=== PATIENT | female | born 1995 | race African-American/Black ===

== ENCOUNTER 2018-08-16 16:31 | Inpatient (IN) | payer BC ==
[~2018-08-16] VITALS: Ht 162.6 cm; Wt 86.4 kg
[2018-08-16] MEDS ORDERED: BETAMETHASONE 6 MG/ML, 5ML IM ONE ×2 (17:19→17:30)
[2018-08-16 17:27] VITALS: BP 130/67
[2018-08-16] MEDS ORDERED: LACTATED RINGERS 1,000 ML IV PRN (17:29)
[2018-08-16] MEDS ORDERED: PLEASE ENTER HEIGHT AND WEIGHT MC SCH (17:30)
[2018-08-16] MEDS: AMPICILLIN 2 GM in SODIUM CHLORIDE 0.9% 100 ML IV SCH ×2 (17:51→23:05)
[2018-08-16 18:13] LABS: BASOPHILS # (AUTO) 0.02 x10^3/uL (0-0.1); BASOPHILS % (AUTO) 0 % (0-1); EOSINOPHILS # (AUTO) 0.06 x10^3/uL (0-0.4); EOSINOPHILS % (AUTO) 1 % (1-7); LYMPHOCYTES # (AUTO) 0.75 x10^3/uL (1-3.4); LYMPHOCYTES % (AUTO) 11 % (22-44); MD NO; MEAN CORPUSCULAR HEMOGLOBIN 29.8 pg (27.0-34.8); MEAN CORPUSCULAR HGB CONC 32.7 g/dL (32.4-35.8); MEAN CORPUSCULAR VOLUME 91.1 fL (80-100); MONOCYTES # (AUTO) 0.45 x10^3/uL (0.2-0.8); MONOCYTES % (AUTO) 6 % (2-9); NEUTROPHILS # (AUTO) 5.81 x10^3/uL (1.8-6.8); NEUTROPHILS % (AUTO) 82 % (42-75); PLATELET COUNT 237 x10^3/uL (130-400); RED CELL DISTRIBUTION WIDTH 14.7 % (9.6-15.2)
[2018-08-16 18:24] LABS: AMPHETAMINE SCREEN, URINE Negative (Negative); BARBITURATE SCREEN, URINE Negative (Negative); BENZODIAZEPINE SCREEN, URINE Negative (Negative); CANNABINOID SCREEN, URINE Negative (Negative); COCAINE SCREEN, URINE Negative (Negative); METHADONE SCREEN, URINE Negative (Negative); OPIATE SCREEN, URINE Negative (Negative)
[2018-08-16] MEDS ORDERED: NEWBORN KIT ONE (19:37)
[2018-08-16] MEDS ORDERED: FENTANYL/BUPIV./NS/PF 250 ML EPIDCONT SCH ×2 (19:47→22:25)
[2018-08-16] MEDS ORDERED: FENTANYL PF 500 MCG, BUPIVACAINE/PF 0.5%, 30ML 62.5 ML in SODIUM CHLORIDE 0.9% 177.5 ML EPIDCONT SCH (20:29)
[2018-08-16 20:30] VITALS: BP 123/62
[2018-08-16] MEDS ORDERED: LACTATED RINGERS 1,000 ML IV SCH (22:25)
[2018-08-16] MEDS ORDERED: LACTATED RINGERS 1,000 ML IVBOLUS PRN (22:30)
[2018-08-16] MEDS ORDERED: EPHEDRINE 50 MG/ML, 1ML IVPush PRN (22:30)
[2018-08-16] MEDS ORDERED: NALOXONE 0.4 MG/ML, 1ML IVPush PRN (22:30)
[2018-08-17] MEDS ORDERED: ONDANSETRON 2MG/ML, 2ML ONE (03:33)
[2018-08-17] MEDS ORDERED: BUPIVACAINE 0.25% ONE ×2 (03:36→03:42)
[2018-08-17] MEDS ORDERED: FENTANYL/BUPIV./NS/PF 250 ML EPIDCONT SCH (04:12)
[2018-08-17] MEDS ORDERED: OXYTOCIN 30U/ 0.9% NaCL 500ML 500 ML ONE (04:23)
[2018-08-17 04:27] LABS: MICROSCOPIC NOT IND
[2018-08-17 04:29] LABS: CULTURE INDICATED? NO
[2018-08-17] MEDS ORDERED: NALOXONE 0.4 MG/ML, 1ML IVPush PRN (04:30)
[2018-08-17] MEDS ORDERED: EPHEDRINE 50 MG/ML, 1ML IVPush PRN (04:30)
[2018-08-17] MEDS ORDERED: LACTATED RINGERS 1,000 ML IVBOLUS PRN (04:30)
[2018-08-17] MEDS: AMPICILLIN 2 GM in SODIUM CHLORIDE 0.9% 100 ML IV SCH ×4 (05:01→23:00)
[2018-08-17] MEDS ORDERED: BETAMETHASONE 6 MG/ML, 5ML IM ONE (17:30)
[2018-08-17] MEDS: LACTATED RINGERS 1,000 ML IV SCH (18:32)
[2018-08-17] MEDS ORDERED: FENTANYL PF 500 MCG, BUPIVACAINE/PF 0.5%, 30ML 62.5 ML in SODIUM CHLORIDE 0.9% 177.5 ML EPIDCONT SCH (18:50)
[2018-08-18] MEDS: LACTATED RINGERS 1,000 ML IV SCH (03:24)
[2018-08-18] MEDS: AMPICILLIN 2 GM in SODIUM CHLORIDE 0.9% 100 ML IV SCH ×2 (04:56→11:26)
== END 2018-08-19 09:21 | disposition home or self-care (01) | DRG 833 ==
LOC: LDOP 16:31 → EDIP 17:36 → LDIP 17:41
PROVIDERS: ADMIT Obstetrics & Gynecology; ATTEND Obstetrics & Gynecology
PROC: 3E0R3BZ Introduction of Anesthetic Agent into Spinal Canal, Percutaneous Approach (ICD-10-PCS; principal; 2018-08-17)
PROC: 3E0R33Z Introduction of Anti-inflammatory into Spinal Canal, Percutaneous Approach (ICD-10-PCS; 2018-08-17)
PROC: 00HU33Z Insertion of Infusion Device into Spinal Canal, Percutaneous Approach (ICD-10-PCS; 2018-08-17)
DX: O60.03 Preterm labor without delivery, third trimester (principal); Z3A.35 35 weeks gestation of pregnancy
CPT/HCPCS: 36415; 80307; 81003; 85025; 86850; 86900; 87081; G0378; J0290; J0702; J3490; J7120

== ENCOUNTER 2018-08-22 13:15 | Outpatient (CLI) | payer BC ==
[~2018-08-22] VITALS: Ht 162.6 cm; Wt 86.4 kg
== END 2018-08-22 16:43 | disposition home or self-care (01) ==
LOC: LDOP 13:15
PROVIDERS: ATTEND Obstetrics & Gynecology
DX: O26.893 Other specified pregnancy related conditions, third trimester (principal); R10.9 Unspecified abdominal pain; Z3A.36 36 weeks gestation of pregnancy
CPT/HCPCS: 59025; 99211; G0463

== ENCOUNTER 2018-09-01 04:02 | Outpatient (CLI) | payer BC ==
[~2018-09-01] VITALS: Ht 162.6 cm; Wt 87.0 kg
[2018-09-01 04:07] VITALS: BP 132/79
== END 2018-09-01 06:30 | disposition home or self-care (01) ==
LOC: LDOP 04:02
PROVIDERS: ATTEND Obstetrics & Gynecology
DX: O26.893 Other specified pregnancy related conditions, third trimester (principal); R10.9 Unspecified abdominal pain; Z3A.37 37 weeks gestation of pregnancy
CPT/HCPCS: 59025; 99211; G0463

== ENCOUNTER 2018-09-01 14:06 | Inpatient (IN) | payer BC ==
[~2018-09-01] VITALS: Ht 162.6 cm; Wt 87.0 kg
[2018-09-01 14:16] VITALS: BP 129/77
[2018-09-01] MEDS ORDERED: LACTATED RINGERS 1,000 ML IV SCH ×2 (15:16→16:21)
[2018-09-01] MEDS ORDERED: OXYTOCIN 30U/ 0.9% NaCL 500ML 500 ML IV ONE (15:16)
[2018-09-01] MEDS ORDERED: D5%-LACTATED RINGERS 1,000 ML IV SCH (15:16)
[2018-09-01] MEDS ORDERED: FENTANYL/BUPIV./NS/PF 250 ML EPIDCONT SCH ×2 (15:19→16:21)
[2018-09-01] MEDS ORDERED: FENTANYL PF 500 MCG, BUPIVACAINE/PF 0.5%, 30ML 62.5 ML in SODIUM CHLORIDE 0.9% 177.5 ML EPIDCONT SCH (15:30)
[2018-09-01] MEDS ORDERED: ONDANSETRON 2MG/ML, 2ML IVPush PRN (15:30)
[2018-09-01] MEDS ORDERED: FENTANYL PF 100 MCG/2ML IVPush PRN (15:30)
[2018-09-01] MEDS ORDERED: FENTANYL PF 100 MCG/2ML ONE (15:31)
[2018-09-01] MEDS ORDERED: LIDOCAINE 1%, 20ML ONE (15:34)
[2018-09-01] MEDS ORDERED: MISOPROSTOL 200 MCG TABLET ONE (15:34)
[2018-09-01] MEDS ORDERED: NEWBORN KIT ONE (15:34)
[2018-09-01] MEDS ORDERED: OXYTOCIN 30U/ 0.9% NaCL 500ML 500 ML ONE (15:35)
[2018-09-01 15:49] LABS: BASOPHILS # (AUTO) 0.02 x10^3/uL (0-0.1); BASOPHILS % (AUTO) 0 % (0-1); EOSINOPHILS # (AUTO) 0.07 x10^3/uL (0-0.4); EOSINOPHILS % (AUTO) 1 % (1-7); LYMPHOCYTES # (AUTO) 1.03 x10^3/uL (1-3.4); LYMPHOCYTES % (AUTO) 11 % (22-44); MD NO; MEAN CORPUSCULAR HEMOGLOBIN 29.6 pg (27.0-34.8); MEAN CORPUSCULAR HGB CONC 33.1 g/dL (32.4-35.8); MEAN CORPUSCULAR VOLUME 89.6 fL (80-100); MEAN PLATELET VOLUME 8.7 fL (7.4-10.4); MONOCYTES # (AUTO) 0.66 x10^3/uL (0.2-0.8); MONOCYTES % (AUTO) 7 % (2-9); NEUTROPHILS # (AUTO) 7.46 x10^3/uL (1.8-6.8); NEUTROPHILS % (AUTO) 81 % (42-75); PLATELET COUNT 253 x10^3/uL (130-400); RED BLOOD COUNT 3.77 x10^6/uL (3.82-5.3); RED CELL DISTRIBUTION WIDTH 14.5 % (9.6-15.2)
[2018-09-01] MEDS ORDERED: BUPIVACAINE 0.25% ONE (16:23)
[2018-09-01] MEDS ORDERED: EPHEDRINE 50 MG/ML, 1ML IVPush PRN (16:30)
[2018-09-01] MEDS ORDERED: NALOXONE 0.4 MG/ML, 1ML IVPush PRN (16:30)
[2018-09-01] MEDS ORDERED: LACTATED RINGERS 1,000 ML IVBOLUS PRN (16:30)
[2018-09-01] MEDS ORDERED: ONDANSETRON ODT 4 MG ONE (17:03)
[2018-09-01] MEDS: OXYTOCIN 30U/ 0.9% NaCL 500ML 500 ML IV SCH (17:59)
[2018-09-01] MEDS ORDERED: DOCUSATE 100 MG CAPSULE PO PRN (18:00)
[2018-09-01] MEDS ORDERED: MISOPROSTOL 200 MCG TABLET SL PRN (18:00)
[2018-09-01] MEDS ORDERED: ONDANSETRON 2MG/ML, 2ML IV PRN (18:00)
[2018-09-01] MEDS ORDERED: OXYcodone/APAP 5/325MG TABLET PO PRN (18:00)
[2018-09-01 21:30] VITALS: BP 131/82
[2018-09-02 01:00] VITALS: BP 125/80
[2018-09-02] MEDS: IBUPROFEN 600 MG TABLET PO PRN ×2 (01:15→12:57)
[2018-09-02 02:45] LABS: BASOPHILS % (AUTO) 1 % (0-1); EOSINOPHILS # (AUTO) 0.01 x10^3/uL (0-0.4); EOSINOPHILS % (AUTO) 0 % (1-7); LYMPHOCYTES % (AUTO) 7 % (22-44); MD NO; MEAN CORPUSCULAR HGB CONC 33.4 g/dL (32.4-35.8); MEAN CORPUSCULAR VOLUME 89.9 fL (80-100); MEAN PLATELET VOLUME 8.3 fL (7.4-10.4); MONOCYTES # (AUTO) 0.46 x10^3/uL (0.2-0.8); MONOCYTES % (AUTO) 3 % (2-9); NEUTROPHILS # (AUTO) 12.03 x10^3/uL (1.8-6.8); NEUTROPHILS % (AUTO) 89 % (42-75); PLATELET COUNT 213 x10^3/uL (130-400); RED BLOOD COUNT 3.58 x10^6/uL (3.82-5.3); RED CELL DISTRIBUTION WIDTH 14.3 % (9.6-15.2)
[2018-09-02] MEDS: OXYTOCIN 30U/ 0.9% NaCL 500ML 500 ML IV SCH (03:59)
[2018-09-02 05:00] VITALS: BP 91/60
[2018-09-02 07:30] VITALS: BP 127/82
[2018-09-02] MEDS ORDERED: PRENATAL VIT/IRON/FA 1 EACH TABLET PO SCH (09:00)
[2018-09-02] MEDS ORDERED: IBUP-1222 PO (09:36)
[2018-09-02 12:00] VITALS: BP 125/82
[2018-09-02 16:06] VITALS: BP 122/77
== END 2018-09-02 18:24 | disposition home or self-care (01) | DRG 807 ==
LOC: LDOP 14:06 → LDIP 15:28 → 2NW 21:00
PROVIDERS: ADMIT Obstetrics & Gynecology; ATTEND Obstetrics & Gynecology
PROC: 10E0XZZ Delivery of Products of Conception, External Approach (ICD-10-PCS; principal; 2018-09-01)
PROC: 3E0R3BZ Introduction of Anesthetic Agent into Spinal Canal, Percutaneous Approach (ICD-10-PCS; 2018-09-01)
PROC: 00HU33Z Insertion of Infusion Device into Spinal Canal, Percutaneous Approach (ICD-10-PCS; 2018-09-01)
DX: O69.81X0 Labor and delivery complicated by cord around neck, without compression, not applicable or unspecified (principal); Z37.0 Single live birth; Z3A.37 37 weeks gestation of pregnancy; Z80.3 Family history of malignant neoplasm of breast
CPT/HCPCS: 36415; 85025; 86850; 86900; G0378; J3010; J7120